=== PATIENT | female | born 1995 | race Hispanic/Latino ===

== ENCOUNTER 2024-06-06 12:49 | Emergency (ER) | payer OTHER ==
[~2024-06-06] VITALS: Ht 165.1 cm; Wt 72.6 kg
[2024-06-06 13:04] VITALS: TEMP 98.3
[2024-06-06 13:20] LABS: BASOPHILS % 0.3 % (0.0-1.0); EOSINOPHILS % 0.1 % (0.0-6.0); HEMATOCRIT 39.7 % (34.2-44.1); HEMOGLOBIN 13.8 g/dL (12.0-16.0); LYMPHOCYTES % 9.5 % (18.0-39.1); MEAN CORPUSCULAR HEMOGLOBIN 30.6 pg (28-32); MEAN CORPUSCULAR HGB CONC 34.8 g/dL (31-35); MONOCYTES # (AUTO) 0.3 (0.2-0.8); MONOCYTES % 3.1 % (4.4-11.3); NEUTROPHILS % 86.7 % (38.7-80.0); PLATELET COUNT 312 x10e3/uL (140-360); RED BLOOD COUNT 4.51 x10e6/uL (3.6-5.1); WHITE BLOOD COUNT 10.36 x10e3/uL (4.8-10.8)
[2024-06-06] MEDS: SODIUM CHLORIDE 0.9% 1000ML 1,000 ML IV ONE (13:38)
[2024-06-06] MEDS: METOCLOPRAMIDE HCL 10 MG/2ML VIAL IV ONE (13:39)
[2024-06-06] MEDS: KETOROLAC TROMETHAMINE 30 MG/ML VIAL IV STA (13:39)
[2024-06-06] MEDS: ACETAMINOPHEN 325 MG TAB PO ONE (13:39)
[2024-06-06] MEDS: DIPHENHYDRAMINE HCL INJ 50 MG/ML VIAL IV ONE (13:39)
[2024-06-06 13:55] LABS: ALBUMIN 3.8 g/dL (3.5-5.0); ALBUMIN/GLOBULIN RATIO 0.9 (0.8-2.0); BILIRUBIN,TOTAL 0.8 mg/dL (0.2-1.2); CALCIUM 9.3 mg/dL (8.4-10.2); CREATININE, SERUM 0.72 mg/dL (0.57-1.11); TOTAL PROTEIN 8.1 g/dL (6.5-8.1)
[2024-06-06 14:40] VITALS: BP 137/87
[2024-06-06] MEDS: HYDRALAZINE HCL 20 MG/ML VIAL IV STA (14:40)
[2024-06-06 16:00] VITALS: PULSE 88; RESP 16; O2SAT 98
== END 2024-06-06 16:33 | disposition home or self-care (01) ==
LOC: ER 13:15
DX: G43.909 Migraine, unspecified, not intractable, without status migrainosus (principal); I16.0 Hypertensive urgency; R11.2 Nausea with vomiting, unspecified; R53.1 Weakness
CPT/HCPCS: 36415; 70450; 80053; 84702; 85025; 99284; J1200; J1885; J2765; J7030; J0360